=== PATIENT | female | born 1955 | race Caucasian/White ===

== ENCOUNTER 2017-02-25 10:44 | Day surgery (SDC) | payer OTHER ==
[~2017-02-25] VITALS: Ht 160 cm; Wt 60.3 kg
[~2017-02-25 10:44] MED LIST: ALLERGY RELIE15.8 ML BOTH NARES; ANTI-DIARRHEA2 MG PO; CALCIUM 600 +1 EA12 PO; FOLIC ACID0.8 MG PO; GELATIN650 MG PO; KLONOPIN0.5 M1 PO; L-LYSINE1000 M1 PO; LEVO-T50 MCG PO; MAGNESIUM400 M1 PO; MYSOLINE50 MG PO; PREMARIN0.9 MG PO; VITAMIN B-12 51 EACH SL; [UNRECOGNIZED DRUG - OTHER] PO
[2017-02-25 11:52] VITALS: BP 156/80
[2017-02-25] MEDS ORDERED: NORCO 5/3251 TABLET PO (15:38)
[2017-02-25 16:40] VITALS: BP 170/86
[2017-02-25 17:40] VITALS: BP 133/71
[2017-02-25 19:15] VITALS: BP 166/89
== END 2017-02-25 19:15 | disposition home or self-care (01) ==
LOC: SDC 10:44
DX: K80.10 Calculus of gallbladder with chronic cholecystitis without obstruction (principal); R19.7 Diarrhea, unspecified; Z90.49 Acquired absence of other specified parts of digestive tract; Z80.0 Family history of malignant neoplasm of digestive organs; Z80.1 Family history of malignant neoplasm of trachea, bronchus and lung; Z82.3 Family history of stroke; Z82.49 Family history of ischemic heart disease and other diseases of the circulatory system; Z85.89 Personal history of malignant neoplasm of other organs and systems; Z88.0 Allergy status to penicillin; Z88.5 Allergy status to narcotic agent; Z88.8 Allergy status to other drugs, medicaments and biological substances; Z91.040 Latex allergy status
CPT/HCPCS: 74300; 88304; J0131; J1100; J1170; J1885; J2405; J2710; J2765; J3010; S0020